=== PATIENT | female | born 1960 | race Caucasian/White ===

== ENCOUNTER → 2019-06-25 15:17 | Outpatient (CLI) | payer OTHER, SELFPAY ==
--- NOTE | 2019-06-25 | DI.MG.S_ITS ---
BILATERAL DIGITAL SCREENING MAMMOGRAM 3D/2D WITH CAD: 06/25/2019 CLINICAL: Routine screening. Family history of breast cancer. Comparison is made to exams dated: 11/29/2016 mammogram, 08/13/2015 mammogram - [facility], and 09/11/[facility]. The tissue of both breasts is heterogeneously dense. This may lower the sensitivity of mammography. Current study was also evaluated with a Computer Aided Detection (CAD) system. No significant masses, calcifications, or other findings are seen in either breast. There has been no significant interval change. IMPRESSION: NEGATIVE There is no mammographic evidence of malignancy. A 1 year screening mammogram is recommended. This exam was interpreted at Station ID: [id number]. NOTE: For mammograms, a report in lay terms will be sent to the patient. Approximately 15% of breast malignancies will not be visualized mammographically. In the management of a palpable breast mass, a negative mammogram must not discourage biopsy of a clinically suspicious lesion. Electronically Signed By: Martinez machado/dianna:06/25/2019 17:29:51 letter sent: Normal Exam ACR BI-RADS Category 1: Negative 3341F
== END ==
PROVIDERS: Family Provider Internal Medicine; PCP Internal Medicine; Visit Provider Internal Medicine
DX: Z12.31 Encounter for screening mammogram for malignant neoplasm of breast (principal); Z80.3 Family history of malignant neoplasm of breast
CPT/HCPCS: 77063; 77067

== ENCOUNTER 2019-09-12 08:47 | Day surgery (SDC) | payer OTHER, SELFPAY ==
--- NOTE | 2019-09-12 | PATH_ITS ---
[facility] Accession Number: [id number] . 01 Material submitted: . colon - ASCENDING COLON POLYP . 02 Diagnosis: Ascending Colon, Polyp: Tubulovillous adenoma, fragmented. Negative for high-grade dysplasia or malignancy. MRV 09/16/2019 1054 Local . 02 Electronically signed: . Doug Blevins MD, PhD, Pathologist NPI- [id number] . 01 Gross description: . ASCENDING COLON POLYP: Received in formalin are multiple fragment(s) of myers, soft tissue measuring 1.3 x 1.3 x 0.3 cm in aggregate submitted entirely in 1 cassette(s) /QBJ 09/12/2019 2154 Local . 02 Pathologist provided ICD-10: D12.2 . 02 CPT . 339064 Performed at: 01 [facility] [address] [id number] MD Salomon Bliss MD Phone: [phone] Performed at: 02 [facility] [address] [place], [place] [id number] MD Noni Morgan MD Phone: [phone]
[2019-09-12 09:05] VITALS: BP 136/79; PULSE 89; RESP 16; TEMP 36.8; O2SAT 98; BMI 24.0
--- NOTE | 2019-09-12 10:04 | PM.HP.1 ---
History of Present Illness History of Present Illness Date Patient Seen: 09/12/19 Time Patient Seen: 10:04 Chief complaint: [id number] Narrative: This is a 59-year-old woman who has never had a screening colonoscopy. She denies any personal or family history of colon polyps or colon cancers. She denies any history of melena, hematochezia, unexplained weight loss, unexplained abdominal pain. She says she is very healthy, and has no medical problems. Her only surgery has been a BTL after the of her last child. ROS: Thirteen system review is otherwise negative other than as mentioned below and in HPI. PE: GENERAL: Well groomed and cooperative. Appears stated age. Answers questions promptly and appropriately. Vital signs noted. HENT: Normocephalic, atraumatic. Hearing intact. Oral mucosa is pink and moist. EYES: Conjunctiva pink, sclera white, no periorbital swelling. CARDIOVASCULAR: Regular rate. No pedal edema. RESPIRATORY: Non-tachypneic, breathing comfortably on room air. GASTROINTESTINAL: Abdomen soft and non-distended GENITALURINARY: No flank tenderness. MUSCULOSKELETAL: Equal tone and mass bilaterally. SKIN: Warm, dry, soft, appropriate color for ethnicity. No other lesions, rashes, or wounds. NEURO: Alert and Oriented X 3. No gross sensory deficits, or cognitive issues. PSYCH: Appropriate affect and mood. Patient History Family & Social History Family History Father Essential hypertension High cholesterol Grandmother Malignant neoplasm of female breast, unspecified laterality, unspecified site of breast Malignant neoplasm of liver, unspecified liver malignancy Mother Osteoarthritis, unspecified osteoarthritis type, unspecified site Uncomplicated asthma, unspecified asthma severity Social History: household members spouse Tobacco & Substance use: Smoking Status Never smoker alcohol intake never Substance Use Type does not use Meds Home Medications and Allergies Home Medications Medication Instructions Recorded Confirmed Type Ketoconazole 1 rene TOPICAL BID #30 gm 01/10/17 09/12/19 Rx [diclofenac 10% cream] 1 - 2 gm TOPICAL SEE INSTRUCTIONS 01/10/17 09/12/19 Rx #60 gm Allergies Allergy/AdvReac Type Severity Reaction Status Date / Time grass pollen [GRASS POLLEN] Allergy Unknown hay fever Unverified 11/14/17 12:30 Exam Vital Signs (past 8 hours): - 09/12/19 09:05 Temperature 98.2 F Pulse Rate 89 Respiratory Rate 16 Blood Pressure 136/79 Pulse Oximetry 98 Oxygen Delivery Method Room Air Assessment & Plan Assessment and plan (1) At average risk for colon cancer: Current visit: Yes Status: Acute Assessment & Plan narrative: Risks and benefits of screening colonoscopy and possible polypectomy were discussed with the patient including risk of bleeding, perforation, need for additional procedures, risks of anesthesia. The patient desires to proceed with the colonoscopy procedure. Time Spent With Patient Time with patient: 15-24 minutes Quality VTE Deep Vein Thrombosis/Pulmonary Embolism Present on Admission: No
--- NOTE | 2019-09-12 10:56 | PM.OP.ENDO ---
Operative Date/Time/Diagnoses Date of procedure: 09/12/19 Time of procedure: 10:56 Pre-op diagnosis: Average risk for colon cancer, never had a screening colonoscopy Post-op diagnosis: other (Large flat polyp at hepatic flexure, removed piecemeal) Procedure & Clinicians Study performed: Colonoscopy, polypectomy with cold snare Same procedure as scheduled: Yes Indications: Average risk for colon cancer, never had a screening colonoscopy Surgeon: Elena Jo Procedure Notes SCOAP/Timeout: Performed Procedure in detail: The patient was brought to the room and placed in left lateral decubitus position with all bony prominences padded. A time-out was performed and then the patient was given procedural sedation starting with 2 mg of Versed and 100 mcg of fentanyl. A total of 5 mg of Versed and 200 micro g of fentanyl were given for the entire procedure. Vitals were monitored throughout the procedure and remained stable. Once adequately sedated the procedure was begun. A rectal exam was performed revealing no abnormalities. The colonoscope was then introduced to the rectum and advanced to the cecum in the usual fashion. The cecum was identified by the appendiceal orifice, the mucosal tri-fold, and the ileocecal valve. The scope was then retracted while rotating side to side and examining each mucosal fold. A large flat polyp was seen at the hepatic flexure. It was sessile, and 3 cm x 1 cm lying transversely along of mucosal fold. It was removed piecemeal with cold snare and forceps. There was good hemostasis. The area was tattooed with 1 cc of ink x3, proximal, distal, and right at the mass. At the conclusion of the procedure retroflexion was performed and small grade 1-2 internal hemorrhoids without stigmata of bleeding were seen. The scope was then withdrawn from the rectum the procedure was concluded. The patient tolerated the procedure well and was transferred to the PACU in stable condition. Scope withdrawal time: 33 Sedation minutes: 47 Findings: polyp (Large polyp) Specimen(s): other (Hepatic flexure polyp) Complications: none Impression: Large flat polyp at the hepatic flexure, suspicious for advanced polyp cancerous growth Post-procedure Recommendations: Will call with biopsy results and Other recommendation (Repeat colonoscopy in 3 months if pathology is precancerous, follow-up to discuss surgery if pathology is cancerous) Follow up: weeks Disposition: PACU
[2019-09-12] MEDS: MIDAZOLAM 5 MG/5 ML VIAL IV (10:57)
[2019-09-12] MEDS: fentaNYL 250 MCG/5 ML INJ IV (10:57)
[2019-09-12 11:00] VITALS: BP 119/74; PULSE 82; RESP 20; TEMP 36.9; O2SAT 100
[2019-09-12 11:10] VITALS: BP 110/76; PULSE 76; RESP 18; O2SAT 100
[2019-09-12 11:35] VITALS: BP 129/77; PULSE 93; RESP 18; O2SAT 100
--- NOTE | 2019-09-12 11:35 | SUR.PHASEII ---
Discharge instructions given to pt and pt's . Both state they understand d/c instructions. pt will be d/valdo with her . Pt very cooperative . Denies any complaints.
== END 2019-09-12 11:39 | disposition home or self-care (01) ==
PROVIDERS: PCP Internal Medicine; Referring Provider Surgery; Visit Provider Surgery
PROC: 0DJD8ZZ Inspection of Lower Intestinal Tract, Via Natural or Artificial Opening Endoscopic (ICD-10-PCS; CPT 45378; principal; 2019-09-12 10:00)
DX: Z12.11 Encounter for screening for malignant neoplasm of colon (principal); K64.0 First degree hemorrhoids; D12.2 Benign neoplasm of ascending colon
CPT/HCPCS: 45385; 45381; 99152; 99153; J2250; J3010

== ENCOUNTER → 2025-03-16 13:32 | Outpatient (CLI) | payer OTHER, SELFPAY ==
--- NOTE | 2025-03-16 13:34 | DI.ECHO.S_ITS ---
[facility] : : [address] : : [place] : : [id number] : : Phone: [phone] Echocardiogram Report + + :Name: ROBERT MAKI Study Date: 03/16/2025 Height: 64 in : :[facility] ReadingLocation: Weight: 135 lb : : Gender: Female BSA: 1.7 m2 : :: 1960 Age: 64 yrs BP: 142/85 mmHg: :Reason For Study: SHORTNESS OF BREATH : :Ordering Physician: RONAK ESPINAL Performed By: Yannick Navas : :Referring: RONAK ESPINAL : + + Interpretation Summary - The left ventricular contractility is normal. Estimated ejection fraction is greater than 55% with no segmental wall motion abnormalities. No LVH. Normal diastolic function. - The right ventricular contractility is normal. - All cardiac chambers of normal size. - Trace to mild mitral regurgitation. - No obvious intracardiac shunts. - No obvious intracardiac masses nor thrombi. - No hemodynamically significant pericardial effusion. - Low right-sided filling pressures. Conclusion: Normal biventricular function with no significant valvular abnormalities. Procedure: A two-dimensional transthoracic echocardiogram with color flow and Doppler was performed. The study quality was technically good. There is no prior echocardiogram noted for this patient. The patient was in normal sinus rhythm during the exam. Left Ventricle: The left ventricle is normal in size. There is normal left ventricular wall thickness. There is no ventricular septal defect visualized. The ejection fraction is estimated to be 55-60%. There are no focal wall motion abnormalities. Diastolic parameters suggest probable normal left ventricular diastolic function and normal filling pressures. Right Ventricle: The right ventricle is grossly normal size. The right ventricular systolic function is normal. Atria: The left atrial size is normal. Right atrial size is normal. There is no Doppler evidence for an interatrial shunt. Mitral Valve: The mitral valve leaflets appear normal. There is no evidence of stenosis, fluttering, or prolapse. There is mild mitral regurgitation. Aortic Valve: The aortic valve is trileaflet. The aortic valve opens well. There is trace aortic regurgitation. Tricuspid Valve: The tricuspid valve leaflets are thin and pliable. There is trace tricuspid regurgitation. Pulmonic Valve: The pulmonic valve is not well seen, but is grossly normal. There is no pulmonic valvular regurgitation. Great Vessels: The aortic root is normal size. The dimensions of the ascending aorta are normal. The pulmonary artery is normal size. The IVC is of normal diameter and collapses greater than 50% with a sniff. This suggests a low right atrial pressure of 3 mm Hg. Pericardium/ Pleura There is no pericardial effusion. There is no pleural effusion. MMode/2D Measurements & Calculations LVIDd: 5.0 cm LVOT diam: 2.0 cm LVIDs: 3.3 cm Ao root diam: 2.9 cm FS: 33.5 % asc Aorta Diam: 2.9 cm EPSS: 0.58 cm Ao Arch Diam (Prox Trans): 1.6 cm IVSd: 0.83 cm LVPWd: 0.73 cm LV peralta. diameter/BSA (cm/m^2): 3.0 LV sys. diameter/BSA (cm/m^2): 2.0 LA A2 area: 15.5 cm2 RA long axis: 4.7 cm LA A4 area: 18.2 cm2 RA area: 15.8 cm2 LA length (vol): 5.4 cm RA vol: 45.0 ml LA vol: 44.1 ml RA : 27.2 ml/m2 LA vol index: 26.6 ml/m2 IVC diam: 1.7 cm RVD1 (basal): 3.6 cm TAPSE: 2.3 cm Doppler Measurements & Calculations Ao V2 max: 137.0 cm/sec LVOT Max Raymond: 96.6 cm/sec Ao V2 mean: 96.3 cm/sec LV V1 max P.7 mmHg Ao max P.5 mmHg LV V1 VTI: 23.8 cm Ao mean P.0 mmHg AQUILES(I,D): 2.3 cm2 Ao V2 VTI: 31.9 cm AQUILES(V,D): 2.1 cm2 sev ratio: 0.75 AQUILES indexed to BSA (cm^2/m^2): 1.4 MV E max raymond: 70.1 cm/sec TR max raymond: 242.4 cm/sec MV A max raymond: 67.1 cm/sec TR max P.5 mmHg MV E/A: 1.0 PA V2 max: 99.3 cm/sec Med Peak E' Raymond: 6.3 cm/sec PA V2 mean: 70.6 cm/sec E/E' med: 11.2 PA mean P.2 mmHg Lat Peak E' Raymond: 10.0 cm/sec PA pr(Accel): 25.9 mmHg E/E' lat: 7.0 E/e' average: 9.1 MV dec time: 0.21 sec [facility] 71.9 ml Reading Physician:SHAKIRA
== END ==
LOC: ECHO 13:33
PROVIDERS: PCP Family Medicine; Referring Provider Internal Medicine; Visit Provider Internal Medicine
DX: I34.0 Nonrheumatic mitral (valve) insufficiency (principal); R06.02 Shortness of breath
CPT/HCPCS: 93306

== ENCOUNTER → 2025-06-11 07:07 | Outpatient (CLI) | payer OTHER, SELFPAY ==
[2025-06-11 07:57] LABS: Add Manual Diff / Slide Review NO; Hematocrit 31.1 % (36-46); Hemoglobin 10.4 g/dL (12.0-16.0); Lymphocytes Absolute Auto 1500 /uL (1100-4500); Mean Corpuscular HGB Conc 33.5 % (30-36); Mean Corpuscular Hemoglobin 29.3 PG (26-34); Mean Corpuscular Volume 87.3 fL (80-100); Platelet Count 263 X10^3/uL (150-400)
[2025-06-11 08:17] LABS: HEMOLYSIS < 15 (0-50); Iron 33 ug/dL (37-170)
[2025-06-11 08:19] LABS: Alanine Aminotransferase 23 IU/L (<35); Albumin 4.0 g/dL (3.5-5.0); Albumin Globulin Ratio 1.7 (1.0-2.8); Alkaline Phosphatase 68 U/L (38-126); Blood Urea Nitrogen 13 mg/dL (7-17); Calcium 9.6 mg/dL (8.4-10.2); Carbon Dioxide 27 mmol/L (22-32); Chloride 104 mmol/L (98-107); Cholesterol 217 mg/dL (140-199); Estimated Glomerular Filt Rate > 60 mL/min (>60); Globulin 2.4 g/dL (1.7-4.1); Glucose 91 mg/dL (70-99); HDL Cholesterol 66 mg/dL (40-60); HEMOLYSIS < 15 (0-50); Potassium 4.4 mmol/L (3.4-5.1); Sodium 137 mmol/L (137-145); Total Protein 6.4 g/dL (6.3-8.2); Triglycerides 108 mg/dL (35-150)
[2025-06-11 08:28] LABS: Percent Iron Saturation 9 % (15-50); Total Iron Binding Capacity 354 ug/dL (265-497); Transferrin 309 mg/dL (206-381)
[2025-06-11 08:53] LABS: Ferritin 7 ng/mL (11-264)
== END ==
PROVIDERS: PCP Family Medicine; Referring Provider Family Medicine; Visit Provider Internal Medicine
DX: D50.9 Iron deficiency anemia, unspecified (principal); E78.2 Mixed hyperlipidemia
CPT/HCPCS: 36415; 80053; 80061; 82728; 83540; 83550; 85025